=== PATIENT | female | born 1960 | race Caucasian/White ===

== ENCOUNTER 2019-04-05 14:09 | Emergency (ER) | payer OTHER ==
[~2019-04-05] VITALS: Wt 67.9 kg
[2019-04-05 14:13] VITALS: BP 131/83; PULSE 84; RESP 20
[2019-04-05] MEDS ORDERED: ACETAMINOPHEN 500 MG TAB PO STA (15:23)
[2019-04-05] MEDS ORDERED: ACET500C5 PO (15:25)
--- NOTE | 2019-04-05 15:37 | ERD ---
ER Documentation Chief Complaint Chief Complaint L brow lac x1d bumped into dresser. no KO, no active bleed now. HPI Is a 58-year-old female patient who presents emergency room with complaint of laceration to left eyelid and headache status post hitting head on wood table yesterday. States she leaned over to pick something up and struck her head on the edge of a table, no KO, no headache as of last night. Bleeding from wound controlled. Patient concerned that she continued to have headache today. No nausea, no vomiting, no visual disturbance. No neck pain. History significant for hypertension. ROS All systems reviewed and are negative except as per history of present illness. 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 Allergies Allergies: Coded Allergies: No Known Allergy (Unverified , 04/05/19) PMhx/Soc Medical and Surgical Hx: pt denies Medical Hx, pt denies Surgical Hx Hx Alcohol Use: No Hx Substance Use: No FmHx Family History: No diabetes, No coronary disease, No other Physical Exam Vitals Vital Signs Date Temp Pulse Resp B/P (MAP) Pulse Ox O2 O2 Flow FiO2 Time Delivery Rate 04/05/19 98.2 84 20 131/83 95 14:13 (99) Physical Exam Const: No acute distress Head: No hematoma, 0.5 cm laceration to left upper eyelid, edges well approximated and healing, no bleeding, no gaping, no erythema Eyes: Normal Conjunctiva, PERRL, EOMI ENT: Normal External Ears, TM clear BL, Nose without drainage, Mouth without oral trauma, no lesions, no exudate, moist. Neck: Full range of motion. No meningismus. No cervical spinal tenderness. FROM. Resp: Clear to auscultation bilaterally, equal chest rise Cardio: Regular rate and rhythm, no murmurs Abd: Soft, non tender, non distended. Normal bowel sounds. Skin: No petechiae or rashes, no bruising, no hematomas, no abrasions Back: No midline or flank tenderness, no spinal tenderness Ext: No cyanosis, or edema Neur: Awake and alert, steady gait, clear speech, neg Romberg, neg hell-barron, neg finger-nose, equal smile Psych: Normal Mood and Affect Results 24 hrs Current Medications Medications Dose Sig/Nida Start Time Status Last (Trade) Ordered Route PRN Stop Time Admin Dose Reason Admin 1,000 mg ONCE STAT 04/05/19 DC 04/05/19 Acetaminophen PO 15:23 15:27 (Tylenol 04/05/19 15:24 Tab) Procedures/MDM This is a 58-year-old female patient presents emergency room with complaint of headache and laceration to left eyelid status post leaving over and hitting head on edge of table last night. The patient presented awake, alert, appropriate, no distress, moving all extremities equally, no bruising, abrasions, or deformities. Based on evaluation, this patients head injury is minor in nature. She is felt to be at very low risk of deterioration and can reliably be observed at home. CT scanning of the brain and xrays of skeleton were considered but deferred after considering the risks of radiation and absence of focal neurological or musculoskeletal findings. The patient acknowledged understanding the risks and chose not get the test. During patient course, the patient is awake, alert, and age appropriate verbalizations. Imaging studies not indicated according to Nexus II Criteria; no evidence of skull fracture, no scalp hematoma, no neuro deficits, normal behavior and alertness, no vomiting, no medical history to indicate coagulopathy. Long discussion had with patient and her daughter regarding signs and symptoms that would be concerning for injury in evolution. She was warned to return to ER immediately for any alteration in behavior, speech, motor movement, vomiting or any concerns. Warning signs for which immediate return are indicated have been reviewed at length Departure Diagnosis: Primary Impression: Laceration Additional Impression: Head injury Condition: Stable Patient Instructions: HEAD INJURY, No Wake-Up (Adult), Laceration, All Referrals: [facility] YOU HAVE RECEIVED A MEDICAL SCREENING EXAM AND THE RESULTS INDICATE THAT YOU DO NOT HAVE A CONDITION THAT REQUIRES URGENT TREATMENT IN THE EMERGENCY DEPARTMENT. FURTHER EVALUATION AND TREATMENT OF YOUR CONDITION CAN WAIT UNTIL YOU ARE SEEN IN YOUR DOCTORS OFFICE WITHIN THE NEXT 1-2 DAYS. IT IS YOUR RESPONSIBILITY TO MAKE AN APPOINTMENT FOR FOLOW-UP CARE. IF YOU HAVE A PRIMARY DOCTOR --you should call your primary doctor and schedule an appointment IF YOU DO NOT HAVE A PRIMARY DOCTOR YOU CAN CALL OUR PHYSICIAN REFERRAL HOTLINE AT IF YOU CAN NOT AFFORD TO SEE A PHYSICIAN YOU CAN CHOSE FROM THE FOLLOWING [facility] [address] [facility] [address] [facility] [address] [facility] [address] [facility] [facility] [address] [facility]. [facility] [address] Additional Instructions: Thank you very much for allowing us to participate in your care. Your health and safety is our top priority at [facility]. Call your primary care doctor TOMORROW for an appointment during the next 2-4 days and bring all the information and medications prescribed. Have prescriptions filled and follow precisely the directions on the label. If the symptoms get worse and your provider is unavailable, return to the Emergency Department immediately. KEEP EYE WOUND CLEAN AND DRY. USE ANTIBIOTIC OINTMENT FOR 5 DAYS, THEN STOP AND APPLY AQUAPHOR OR MEDERMA DAILY. RETURN TO ER WITH VOMITING, SEVERE DIZZINESS, SEVERE HEADACHE ROSEMARY LORENZ NP April 05, 2019 15:37
== END 2019-04-05 16:06 | disposition home or self-care (01) ==
LOC: FTE 14:09
DX: S01.112A Laceration without foreign body of left eyelid and periocular area, initial encounter (principal); W22.8XXA Striking against or struck by other objects, initial encounter; Y92.9 Unspecified place or not applicable
CPT/HCPCS: 99282